=== PATIENT | male | born 1955 | race Caucasian/White ===

== ENCOUNTER 2021-04-25 17:01 | Inpatient (IN) ==
[2021-04-25] MEDS ORDERED: Aspirin 81 MG TAB.CHEW PO ONE (18:26)
[2021-04-25 18:29] LABS: Basophils % 0.5 %; Eosinophils # 0.1 K/mcL (0.0-0.6); Eosinophils % 0.7 %; Hematocrit 42.6 % (37.5-50.1); Hemoglobin 15.1 g/dL (12.9-16.9); Immature Granulocytes % 0.2 % (0-4); Lymphocytes # 1.8 K/mcL (0.6-4.6); Lymphocytes % 22.4 %; Mean Corpuscular HGB Conc 35.4 g/dL (31.6-35.5); Mean Corpuscular Hemoglobin 34.1 pg (28.0-33.3); Mean Corpuscular Volume 96.2 fL (83.0-100.0); Mean Platelet Volume 8.5 fL (9.4-12.4); Monocytes # 0.9 K/mcL (0.0-1.3); Monocytes % 11.2 %; Neutrophils # 5.2 K/mcL (1.6-8.9); Platelet Count 217 K/mcL (140-400); Red Blood Count 4.43 M/mcL (4.19-5.50); Red Cell Distribution Width 13.3 % (11.5-14.5)
[2021-04-25 18:50] LABS: BUN/Creatinine Ratio 19 (6-26); Blood Urea Nitrogen 19 mg/dL (8-23); Calcium 9.3 mg/dL (8.6-10.3); Carbon Dioxide 24 mEq/L (23-29); Chloride 101 mEq/L (98-107); Glucose 92 mg/dL (70-105); Osmolality,Calculated 284 (280-300); Potassium 3.8 mEq/L (3.5-5.1); Sodium 136 mEq/L (136-145); eGFR For African Americans > 60 (> 60); eGFR For Non-African Americans > 60 (> 60)
[2021-04-25] MEDS ORDERED: Isovue-370 500 ML BOTTLE IVP ONE (19:36)
[2021-04-25] MEDS ORDERED: Nitroglycerin 0.4 MG TAB.SUBL SL PRN (19:37)
[2021-04-25] MEDS ORDERED: Morphine Sulfate 2 MG/ML SYRINGE IVP STA (21:33)
[2021-04-26] MEDS ORDERED: Perflutren Lipid Microsphere 1.3 ML in 0.9 % Sodium Chloride 8.7 ML IVP PRN (01:19)
[2021-04-26] MEDS ORDERED: Naloxone 0.4 MG/ML INJ IVP PRN (01:22)
[2021-04-26] MEDS ORDERED: Acetaminophen 325 MG TABLET PO PRN (01:22)
[2021-04-26] MEDS ORDERED: Ondansetron 4 MG/2 ML VIAL IVP PRN (01:22)
[2021-04-26 02:05] LABS: Adenovirus Not Detected (Not Detect); Bordetella Pertussis Not Detected (Not Detect); Chlamydophila pneumoniae Not Detected (Not Detect); Coronavirus 229E Not Detected (Not Detect); Coronavirus HKU1 Not Detected (Not Detect); Coronavirus NL63 Not Detected (Not Detect); Coronavirus OC43 Not Detected (Not Detect); Human Metapneumovirus Not Detected (Not Detect); Human Rhinovirus/Enterovirus Not Detected (Not Detect); Influenza A Subtype 2009 H1 Not Detected (Not Detect); Influenza B Not Detected (Not Detect); Mycoplasma pneumoniae Not Detected (Not Detect); Parainfluenza Virus 1 Not Detected (Not Detect); Parainfluenza Virus 2 Not Detected (Not Detect); Parainfluenza Virus 3 Not Detected (Not Detect); Parainfluenza Virus 4 Not Detected (Not Detect); Respiratory Syncytial Virus Not Detected (Not Detect); SARS-CoV-2 Not Detected (Not Detect)
[2021-04-26 02:27] LABS: Hematocrit 39.4 % (37.5-50.1); Mean Corpuscular HGB Conc 33.2 g/dL (31.6-35.5); Mean Corpuscular Hemoglobin 32.3 pg (28.0-33.3); Mean Corpuscular Volume 97.3 fL (83.0-100.0); Platelet Count 192 K/mcL (140-400); Red Blood Count 4.05 M/mcL (4.19-5.50); Red Cell Distribution Width 13.3 % (11.5-14.5); White Blood Count 5.3 K/mcL (4.3-11.1)
[2021-04-26 02:29] LABS: Hemoglobin 13.1 g/dL (12.9-16.9)
[2021-04-26 02:33] LABS: INR 0.9; Prothrombin Time 10.5 Seconds (9.4-12.1)
[2021-04-26 02:35] LABS: Activated Partial Thrombo Time 31.9 Seconds (26.0-36.0)
[2021-04-26 02:59] LABS: BUN/Creatinine Ratio 21 (6-26); Blood Urea Nitrogen 17 mg/dL (8-23); Calcium 8.5 mg/dL (8.6-10.3); Carbon Dioxide 23 mEq/L (23-29); Chloride 104 mEq/L (98-107); Chol/HDL Ratio 4.8 (0-4.9); Cholesterol 181 mg/dL (< 200); Glucose 90 mg/dL (70-105); HDL Cholesterol 38 mg/dL (40-59); LDL Cholesterol,Calculated 66 mg/dL (< 100); Magnesium 2.1 mg/dL (1.6-2.6); Osmolality,Calculated 287 (280-300); Potassium 3.6 mEq/L (3.5-5.1); Sodium 138 mEq/L (136-145); Triglycerides 387 mg/dL (< 150); eGFR For African Americans > 60 (> 60); eGFR For Non-African Americans > 60 (> 60)
[2021-04-26 03:00] LABS: Thyroid Stimulating Hormone 4.135 mcIU/mL (0.340-5.600)
[2021-04-26] MEDS ORDERED: *HR* Heparin 5,000 UNIT/ML VIAL IVP PRN ×2 (03:58)
[2021-04-26] MEDS ORDERED: *HR* Heparin 5,000 UNIT/ML VIAL IVP ONE (03:58)
[2021-04-26] MEDS ORDERED: Heparin 25,000UNIT/250ML 1/2NS 25,000 UNIT/250 ML IV.SOLN IVC SCH (04:00)
[2021-04-26] MEDS: Aspirin Enteric Coated 81 MG Tablet PO SCH (08:40)
[2021-04-26] MEDS ORDERED: *HR* FentaNYL (PF) 100 MCG/2 ML VIAL ONE (09:33)
[2021-04-26] MEDS ORDERED: *HR* Midazolam HCl 2 MG/2 ML VIAL ONE (09:33)
[2021-04-26] MEDS ORDERED: ISOVUE-370 200 ML INFUS..BTL ONE (09:34)
[2021-04-26] MEDS ORDERED: Nitroglycerin 1,000 MCG/5 ML VIAL IV ONE (09:34)
[2021-04-26] MEDS ORDERED: *HR* Heparin 10,000 UNIT/10 ML VIAL ONE (09:34)
[2021-04-26] MEDS ORDERED: Heparin 1,000 UNITS/500 mL 500 ML ONE (09:34)
[2021-04-26] MEDS ORDERED: 0.9 % Sodium Chloride 2,000 ML ONE (09:34)
[2021-04-26 10:08] LABS: Estimated Average Glucose 137 mg/dl; Hemoglobin A1C 6.4 %
[2021-04-26] MEDS ORDERED: Tirofiban 12.5 MG/250ML 12.5 MG/250 ML BAG ONE (10:14)
[2021-04-27 03:54] LABS: Hematocrit 38.3 % (37.5-50.1); Hemoglobin 12.9 g/dL (12.9-16.9); Mean Corpuscular HGB Conc 33.7 g/dL (31.6-35.5); Mean Corpuscular Hemoglobin 33.3 pg (28.0-33.3); Platelet Count 201 K/mcL (140-400); Red Blood Count 3.87 M/mcL (4.19-5.50); Red Cell Distribution Width 13.4 % (11.5-14.5); White Blood Count 6.8 K/mcL (4.3-11.1)
[2021-04-27 04:53] LABS: BUN/Creatinine Ratio 18 (6-26); Blood Urea Nitrogen 15 mg/dL (8-23); Calcium 8.8 mg/dL (8.6-10.3); Carbon Dioxide 24 mEq/L (23-29); Chloride 104 mEq/L (98-107); Glucose 123 mg/dL (70-105); Osmolality,Calculated 282 (280-300); Potassium 4.3 mEq/L (3.5-5.1); Sodium 135 mEq/L (136-145); eGFR For African Americans > 60 (> 60); eGFR For Non-African Americans > 60 (> 60)
[2021-04-27 05:21] VITALS: O2SAT 98
[2021-04-27 06:37] VITALS: BP 138/94; PULSE 70; TEMP 98.1
[2021-04-27] MEDS: Aspirin Enteric Coated 81 MG Tablet PO SCH (08:14)
[2021-04-27] MEDS ORDERED: lisinopriL 20 MG TABLET PO SCH (09:00)
== END 2021-04-27 11:06 | disposition home or self-care (01) | DRG 247 ==
LOC: 2ANU 17:01 → EMEROOARM 17:01 → 2ANU 23:39
PROVIDERS: ADMIT Internal Medicine; ATTEND Internal Medicine